=== PATIENT | female | born 1975 | race Two or more races ===

== ENCOUNTER 2017-03-25 08:14 | Inpatient (IN) | payer BC, OTHER ==
[2017-03-25] MEDS: DEXTROSE 5%-LACTATED RINGERS 1,000 ML IV SCH ×2 (09:00→17:00)
[2017-03-25 10:19] LABS: BASOPHIL 0.2 % (0-2.0); EOSINOPHIL 0.7 % (0-4.5); MCH 30.6 pg (25.7-33.7); MCHC 33.5 g/dl (32.0-36.0); MEAN CELL VOLUME 91.5 fl (80-96); MEAN PLT VOLUME 10.2 fl (7.5-11.1); NEUTROPHILS 82.3 % (42.8-82.8); PLATELET COUNT 107 K/MM3 (134-434); WHITE BLOOD COUNT 9.8 K/mm3 (4.0-10.0)
[2017-03-25 10:31] VITALS: BMI 30.9
[2017-03-25 10:38] LABS: ALBUMIN 2.8 g/dl (3.4-5.0); ALK PHOS 86 U/L (45-117); ANION GAP 7 (8-16); BILIRUBIN,TOTAL 0.2 mg/dL (0.2-1.0); CALCIUM 8.5 mg/dL (8.5-10.1); CO2 24 mmol/L (21-32); CREATININE 0.5 mg/dL (0.55-1.02); GLUCOSE,RANDOM 89 mg/dL (74-106); INR 0.98 (0.82-1.09); PROTHROMBIN TIME (PATIENT) 10.8 SEC (9.98-11.88); SGOT/AST 19 U/L (15-37); SGPT/ALT 18 U/L (12-78); TOT PROT 6.5 g/dl (6.4-8.2)
[2017-03-25 10:41] LABS: ACTIVATED PTT 25.2 SECONDS (26.9-34.4)
[2017-03-25] MEDS ORDERED: AMPICILLIN - 2 GM in SODIUM CHLORIDE 100 ML IVPB ONE (10:52)
[2017-03-25 10:58] LABS: HIV 1 & 2 AB NEGATIVE; HIV 1 AGp24 NEGATIVE
--- NOTE | 2017-03-25 11:51 | HP ---
Past Medical History - Admission Chief Complaint: Labor pain History of Present Illness: 41 yo @ 36 weeks gestation, EDC 04/20/17, presents c/o labor pain associated with leakage of fluid. History Source: Patient Limitations to Obtaining History: No Limitations - Past Medical History ...: 6 ...Para: 5 ...Term: 5 ...: 0 ...Spon : 0 ...Induced : 0 ...Multiple Gestation: 0 ...LMP: 07/14/16 ... Weeks Gestation by Dates: 36.2 ...EDC by Dates: 04/20/17 ...EDC by Sono: 04/20/17 - Past Surgical History Past Surgical History: Yes: None Hx Myomectomy: No Hx Transabdominal Cerclage: No - Smoking History Smoking history: Never smoked Have you smoked in the past 12 months: No - Alcohol/Substance Use Hx Alcohol Use: No History of Substance Use: reports: None - Social History History of Recent Travel: No Home Medications - Allergies Allergies/Adverse Reactions: Allergies Allergy/AdvReac Type Severity Reaction Status Date / Time No Known Allergies Allergy Verified 03/25/17 10:12 - Home Medications Home Medications: Ambulatory Orders Ferrous Sulfate 325 mg PO DAILY 03/25/17 Folic Acid 1 mg PO DAILY 03/25/17 L.acidoph,Paracasei, B.lactis [Probiotic] 1 each PO DAILY 03/25/17 Levothyroxine [Synthroid -] 25 mcg PO DAILY 03/25/17 [place]-3 Fatty Acids [[place]-3] 1,000 mg PO DAILY 03/25/17 Pnv95/Ferrous Fumarate/FA [ Vitamin Tablet] 1 each PO DAILY 03/25/17 Family Disease History - Family Disease History Family History: Unremarkable Review of Systems - Review of Systems Constitutional: reports: No Symptoms Eyes: reports: No Symptoms HENT: reports: No Symptoms Neck: reports: No Symptoms Cardiovascular: reports: No Symptoms Respiratory: reports: No Symptoms Gastrointestinal: reports: No Symptoms Genitourinary: reports: No Symptoms Physical Exam - Maternity Vital Signs: Vital Signs Temperature 98.5 F 03/25/17 11:00 Pulse Rate 90 03/25/17 11:00 Respiratory Rate 20 03/25/17 11:00 Blood Pressure 111/76 03/25/17 11:00 O2 Sat by Pulse Oximetry (%) - Labs Lab Results: CBC, BMP 03/25/17 09:40 03/25/17 09:40
[2017-03-25] MEDS: AMPICILLIN - 1 GM in SODIUM CHLORIDE 100 ML IVPB SCH ×3 (14:14→22:45)
[2017-03-25 14:30] LABS: URINE APPEARANCE CLEAR; URINE BILIRUBIN NEGATIVE (NEGATIVE); URINE BLOOD 3+ (NEGATIVE); URINE COLOR LTYELLOW; URINE GLUCOSE (UA) NEGATIVE (NEGATIVE); URINE KETONE NEGATIVE (NEGATIVE); URINE LEUK ESTERASE TRACE (NEGATIVE); URINE NITRITE NEGATIVE (NEGATIVE); URINE PROTEIN NEGATIVE (NEGATIVE); URINE UROBILINOGEN NEGATIVE mg/dL (0.2-1.0)
[2017-03-25 14:41] LABS: URINE MUCUS RARE; URINE RBC 93 /hpf (0-3); URINE WBC 3 /hpf (3-5)
[2017-03-25 14:51] LABS: URINE MARIJUANA THC NEGATIVE ng/ml (CUTOFF=50)
--- NOTE | 2017-03-25 15:19 | PN ---
Progress Note (short form) - Note Progress Note: cx 4 cm 80 vx -2 mr , irregular contraction, fhr cat 1advised pitocin, rba discussed
[2017-03-25] MEDS ORDERED: OXYTOCIN 15 UNITS/ LR 250 ML 250 ML IVPB SCH (15:30)
--- NOTE | 2017-03-25 18:03 | PN ---
Progress Note (short form) - Note Progress Note: cx 4 to 5 cm. 75 vx -2 mr, fhr cat1
[2017-03-25] MEDS ORDERED: TUBERCULIN PPD 5 TU/0.1ML SYRINGE (IN PATIENT USE ONLY) ID ONE ×2 (19:00)
[2017-03-25] MEDS ORDERED: FENTANYL/BUPIVACAINE/NS/PF - PCEA - 50 ML DISP.SYRIN EP SCH (23:00)
--- NOTE | 2017-03-25 23:37 | PN ---
Progress Note (short form) - Note Progress Note: cx 8 cm 80 vx -1 mr, fhr cat 1 , small variable
[2017-03-25] MEDS ORDERED: ELECTROLYTE-148 SOLN 1,000 ML IV SCH (23:45)
[2017-03-26] MEDS: D5W-LR W/ 20 UNITS OXYTOCIN 1,000 ML IV SCH ×2 (00:56→06:10)
[2017-03-26] MEDS ORDERED: WITCH HAZEL 50% (TUCKS) 40 PAD/JAR PAD TP PRN (01:04)
[2017-03-26] MEDS ORDERED: BISACODYL 10 MG SUPP.RECT RC PRN (01:04)
[2017-03-26] MEDS ORDERED: METHYLERGONOVINE MALEATE 0.2 MG/1 ML AMP IM PRN (01:04)
[2017-03-26] MEDS ORDERED: BENZOCAINE 20% 57 GM BOTTLE TP PRN (01:04)
[2017-03-26] MEDS ORDERED: BENZOCAINE 28 GM HEMORRHOIDAL OINTMENT TP PRN (01:04)
[2017-03-26 02:04] LABS: ARTERIAL BLD GAS O2 SATURATION 88.1 % (90-98.9)
[2017-03-26 02:05] LABS: ART PUNCT SITE OTHER; ARTERIAL BLOOD GAS BASE EXCESS -1.9 meq/l (-2-2); ARTERIAL BLOOD GAS HCO3 23.3 meq/L (22-26); ARTERIAL BLOOD GAS pH 7.35 (7.35-7.45); LPM/O2% 21%; PT. ON O2? no; TYPE OF O2 room air
[2017-03-26 02:06] LABS: ARTERIAL BLOOD GAS PO2 46.9 mmHg (80-100)
[2017-03-26] MEDS: AMPICILLIN - 1 GM in SODIUM CHLORIDE 100 ML IVPB SCH (02:34)
[2017-03-26] MEDS: LEVOTHYROXINE NA 25 MCG TABLET (FP) PO SCH (06:40)
[2017-03-26] MEDS: ACETAMINOPHEN 325 MG TABLET (FP) PO PRN (08:45)
[2017-03-26] MEDS: IBUPROFEN 600 MG TABLET (FP) PO PRN (08:45)
[2017-03-26] MEDS: PRENATAL VITAMINS W/ FOLIC ACID TABLET (FP) PO SCH (09:45)
[2017-03-26] MEDS: FERROUS SO4 325 MG TABLET (FP) PO SCH ×2 (09:45→21:34)
[2017-03-27] MEDS: LEVOTHYROXINE NA 25 MCG TABLET (FP) PO SCH (06:02)
[2017-03-27] MEDS: IBUPROFEN 600 MG TABLET (FP) PO PRN (06:04)
[2017-03-27] MEDS: ACETAMINOPHEN 325 MG TABLET (FP) PO PRN (06:07)
[2017-03-27 08:02] LABS: BASOPHIL 0.3 % (0-2.0); EOSINOPHIL 2.3 % (0-4.5); MCH 31.1 pg (25.7-33.7); MEAN CELL VOLUME 91.4 fl (80-96); NEUTROPHILS 69.3 % (42.8-82.8); PLATELET COUNT 101 K/MM3 (134-434); RDW 14.2 % (11.6-15.6); WHITE BLOOD COUNT 7.7 K/mm3 (4.0-10.0)
[2017-03-27] MEDS: FERROUS SO4 325 MG TABLET (FP) PO SCH ×2 (10:02→21:30)
[2017-03-27] MEDS: PRENATAL VITAMINS W/ FOLIC ACID TABLET (FP) PO SCH (10:02)
--- NOTE | 2017-03-27 11:16 | PN ---
Post Progress Note Post Day: 1 Type of Delivery: Vital Signs: Vital Signs Temperature 97.9 F 03/27/17 06:00 Pulse Rate 76 03/27/17 06:00 Respiratory Rate 18 03/27/17 06:00 Blood Pressure 121/76 03/27/17 06:00 O2 Sat by Pulse Oximetry (%) 100 03/26/17 02:15 Breast Exam: Yes: Soft Uterus: Yes: Fundus Firm Abdomen/GI: Yes: Abdomen soft Lochia: Yes: Rubra Lochia, amount: Small Extremities: Yes: Calves non-tender Perineum: Yes: Intact - Labs Labs: CBC WBC 7.7 K/mm3 (4.0-10.0) 03/27/17 07:25 RBC 3.26 M/mm3 (3.60-5.2) L 03/27/17 07:25 Hgb 10.1 GM/dL (10.7-15.3) L D 03/27/17 07:25 Hct 29.8 % (32.4-45.2) L 03/27/17 07:25 MCV 91.4 fl (80-96) 03/27/17 07:25 MCH 31.1 pg (25.7-33.7) 03/27/17 07:25 MCHC 34.0 g/dl (32.0-36.0) 03/27/17 07:25 RDW 14.2 % (11.6-15.6) 03/27/17 07:25 Plt Count 101 K/MM3 (134-434) L 03/27/17 07:25 MPV 10.0 fl (7.5-11.1) 03/27/17 07:25 Neutrophils % 69.3 % (42.8-82.8) 03/27/17 07:25 Lymphocytes % 20.6 % (8-40) D 03/27/17 07:25 Monocytes % 7.5 % (3.8-10.2) 03/27/17 07:25 Eosinophils % 2.3 % (0-4.5) D 03/27/17 07:25 Basophils % 0.3 % (0-2.0) 03/27/17 07:25 Assessment/Plan as above continue care ob anticipate dc yessi
[2017-03-27] MEDS ORDERED: DIPHTH,PERTUSS(ACELL),TET 0.5 ML DISP.SYRIN IM ONE (18:15)
[2017-03-27] MEDS ORDERED: SENNOSIDES/DOCUSATE COMBO (SENNA PLUS) TABLET (UD) PO PRN (22:00)
[2017-03-28 01:36] VITALS: BP 108/69
[2017-03-28] MEDS: ACETAMINOPHEN 325 MG TABLET (FP) PO PRN (05:20)
[2017-03-28] MEDS: IBUPROFEN 600 MG TABLET (FP) PO PRN (05:20)
[2017-03-28] MEDS: LEVOTHYROXINE NA 25 MCG TABLET (FP) PO SCH (06:18)
[2017-03-28] MEDS: PRENATAL VITAMINS W/ FOLIC ACID TABLET (FP) PO SCH (09:46)
[2017-03-28] MEDS: FERROUS SO4 325 MG TABLET (FP) PO SCH (09:46)
[2017-03-28 12:48] VITALS: PULSE 80; TEMP 97.3
--- NOTE | 2017-03-29 17:20 | DS ---
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: Vital Signs Temperature 97.3 F L 03/28/17 09:00 Pulse Rate 80 03/28/17 09:00 Respiratory Rate 20 03/28/17 09:00 Blood Pressure 108/69 03/28/17 09:00 O2 Sat by Pulse Oximetry (%) 100 03/26/17 02:15 Constitutional: Yes: Well Nourished, No Distress, Calm Eyes: Yes: WNL, Conjunctiva Clear, EOM Intact HENT: Yes: WNL, Atraumatic, Normocephalic Neck: Yes: WNL, Supple, Trachea Midline Cardiovascular: Yes: WNL, Regular Rate and Rhythm Respiratory: Yes: WNL, Regular, CTA Bilaterally Gastrointestinal: Yes: WNL ...Rectal Exam: Yes: WNL Renal/: Yes: WNL ....Post : Yes: Uterus firm, Uterus non-tender, Slight lochia rubra Breast(s): Yes: WNL Musculoskeletal: Yes: WNL Extremities: Yes: WNL Integumentary: Yes: WNL Neurological: Yes: WNL, Alert, Oriented ...Motor Strength: WNL Psychiatric: Yes: WNL, Alert, Oriented Labs: CBC, BMP 03/27/17 07:25 03/25/17 09:40 Delivery - Delivery Vaginal Delivery: Spontaneous (no complication) Type of Anesthesia: Epidural Episiotomy/Laceration: None EBL (cc): 300 Delivery, Single - Stages of Labor Date 1st Stage Initiatied: 03/25/17 Time 1st Stage Initiated: 01:00 Date 2nd Stage Initiated: 03/26/17 Time 2nd Stage Initiated: 00:35 Date of Delivery: 03/26/17 Time of Delivery: 00:56 Time Placenta Delivered: 00:58 Placenta: Yes: Spontaneous (no complication) - 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 Referrals: Blanco Raines MD [Staff Physician] - Disposition: HOME - Home Medications Comprehensive Discharge Medication List: Ambulatory Orders Ferrous Sulfate 325 mg PO DAILY 03/25/17 Folic Acid 1 mg PO DAILY 03/25/17 LAsteracidoph,Samantha B.lactis [Probiotic] 1 each PO DAILY 03/25/17 Levothyroxine [Synthroid -] 25 mcg PO DAILY 03/25/17 [place]-3 Fatty Acids [[place]-3] 1,000 mg PO DAILY 03/25/17 Pnv95/Ferrous Fumarate/FA [ Vitamin Tablet] 1 each PO DAILY 03/25/17
== END 2017-03-28 11:45 | disposition home or self-care (01) | DRG 775 ==
LOC: JDEL 08:14 → JLDR 08:42 → J3W 03-26 15:46
PROVIDERS: ADMIT Obstetrics & Gynecology; ATTEND Obstetrics & Gynecology
PROC: 10E0XZZ Delivery of Products of Conception, External Approach (ICD-10-PCS; principal; 2017-03-26)
DX: O60.14X0 Preterm labor third trimester with preterm delivery third trimester, not applicable or unspecified (principal); O09.523 Supervision of elderly multigravida, third trimester; Z3A.36 36 weeks gestation of pregnancy; Z37.0 Single live birth
CPT/HCPCS: 36415; 36600; 59409; 80053; 80307; 81003; 81015; 82803; 85025; 85610; 85730; 86593; 86762; 86850; 86900; 86901; 87340; 87389; 90715